=== PATIENT | female | born 1970 | race Caucasian/White ===

== ENCOUNTER 2018-09-04 10:04 | Outpatient (CLI) | payer OTHER, SELFPAY ==
[2018-09-04] VITALS (9 sets, daily range): BP systolic 117–144; BP diastolic 83–90; PULSE 93–110; RESP 16–20; TEMP 36.9; O2SAT 99–100
--- NOTE | 2018-09-04 10:08 | DI.RAD.S_ITS ---
PROCEDURE: PAIN L/SI FACET INJ/BLK 1STL INDICATIONS: SPONDYLOSIS FINDINGS: Fluoroscopic spot filming was performed to verify right-sided placement of spinal needles at the L4-5 and L5-S1 facet level(s), as labeled on the films. Appropriate location(s) of the needle tip(s) was confirmed by injection of iodinated contrast. IMPRESSION: Successful right-sided L4-5 and L5-S1 facet needle tip localization for steroid injection. Dictated by: Andrew Dave M.D. on 09/04/2018 at 12:45 Approved by: Andrew Dave M.D. on 09/04/2018 at 12:46
--- NOTE | 2018-09-04 10:08 | DI.RAD.S_ITS ---
PROCEDURE: XR LUMBAR SPINE MIN 4V INDICATIONS: lower back pain TECHNIQUE: 5 views of the lumbar spine were acquired. COMPARISON: None. FINDINGS: Bones: 5 nonrib-bearing vertebrae are present. There is normal bony alignment. No vertebral body compression fractures. No suspicious bony lesions. The moderate foraminal narrowing is present at L5-S1 with trace retrolisthesis at this level. Soft tissues: Overlying bowel gas pattern is normal. No suspicious soft tissue calcifications. Oblique images: No pars defects. IMPRESSION: Degenerative changes most notable at L5-S1. Dictated by: Maren Moreno M.D. on 09/04/2018 at 12:35 Approved by: Maren Moreno M.D. on 09/04/2018 at 12:38
[2018-09-04] MEDS: MIDAZOLAM 5 MG/5 ML VIAL IV (11:24)
[2018-09-04] MEDS: IOPAMIDOL 15 ML VIAL 3 ML INJ (11:30)
[2018-09-04] MEDS: BUPIVACAINE 0.5% (PF) VIAL 2 ML INJ (11:31)
[2018-09-04] MEDS: BETAMETHASONE 30 MG/5 ML MDV 12 MG INJ (11:32)
[2018-09-04] MEDS: LIDOCAINE 1% 20 ML INJ 10 ML INJ (11:32)
--- NOTE | 2018-09-04 11:35 | PC.NURSE ---
ASSISTING PT OFF TABLE AND TRANSPORTING TO POST PROC AREA IN STABLE CONDITION
--- NOTE | 2018-09-04 11:41 | P.PCN_ITS ---
Procedures Date/Time Date of procedure: 09/04/18 Time of procedure: 11:39 General Procedure description: PREOP DIAGNOSIS 1. FACET ARTHROPATHY 2. AXIAL LBP 3. MULTILEVEL DDD POST OP DIAGNOSIS 1. FACET ARTHROPATHY 2. AXIAL LBP 3. MULTILEVEL DDD PROCEDURES 1. FLUORSCOPICALLY GUIDED CONTRAST CONTROLLED FACET JOINT INJECTIONS BILATERAL L4/5, L5/S1 PHYSICIAN: Sean Yousif, DO INDICATIONS Sarahi is referred for treatment of Bilateral Axial LBP FINDINGS Multilevel Facet Arthropathy with Clinically significant axial LBP DESCRIPTION OF PROCEDURE Fluoroscopically guided, contrast-controlled bilateral L4/5, L5/S1 facet joint injections. Following denial of allergy and review of potential side effects and complications, including, but not necessarily limited to, infection, allergic reaction, local tissue breakdown, stroke, temporary or permanent nerve injury, paralysis, and possible , the patient indicated that the patient understood and agreed to proceed. An informed consent document was signed by the patient, witnessed by a nurse, and placed in the patient's chart. Additionally, other treatment options including medications, modalities, and physical therapy were reviewed with the patient. After review of previous anaesthesic history and IV conscious sedation the patient was deemed safe to proceed with todays procedure with IV conscious sedation as ASA class II designation. Safety time-out was performed to confirm patient ID, procedure to be performed and site of procedure. IV sedation was accomplished with a combination of 5mg was administered by the RN after DO order, titrated to patient comfort during the course of the procedure while the patient remained responsive to all verbal commands In the prone position, following sterile prep and drape of the lumbar region, the posterior aspect of the L4/5, L5/S1 facet joints were identified fluoroscopically. The skin was anesthetized via a 25-gauge 1.5-inch needle with 1% lidocaine solution into the corresponding facet joints. At this point, a 22- gauge 3.5-inch spinal needle was atraumatically introduced and advanced under fluoroscopic guidance into the corresponding facet joints. Following negative aspiration, injections of approximately 0.2-cc of Isovue 200 confirmed interarticular placement without vascular uptake. The identical procedure was then performed at the L4/5, L5/S1 facet joints on the left. Radiological data, including multiple fluoroscopic views of the lumbosacral spine, reveal a spinal needle at the L4/5, L5/S1 facet joints bilaterally. Subsequent views show flow of contrast material both superiorly and inferiorly within the joint space without vascular or intrathecal uptake. At this point, a total of 0.5 cc including a mixture of 0.25cc Marcaine and 0.25cc betamethasone was injected without complication into each of the corresponding facet joints. The patient tolerated the procedure well without signs or symptoms of complications prior to transfer to the recovery area continued monitoring withou t incident. The patient was then transferred to the recovery area where they were observed for an appropriate period of time after the injection. The patient reported a VAS score of 7 prior to the procedure and a post- procedure VAS of 0. Total Fluoroscopy Time: 20.3 seconds Total Conscious Sedation Time: 24min POST OP INSTRUCTIONS The patient was provided a Pain Log to continue to record their response to the target-specific procedure prior to follow-up visit with their referring physician. Additionally, specific post-injection care instructions and a contact number to our office were provided if concerns arise regarding possible complications associated with the procedure are suspected. Sean Yousif, Complications: none
--- NOTE | 2018-09-04 12:19 | PC.NURSE ---
pt returned awake and alert, able to move from wheelchair to chair with standby assist. Resumed monitoring from Trang FIELDS.
== END 2018-09-04 12:06 ==
LOC: RAD 10:07
PROVIDERS: Visit Provider Physical Medicine & Rehabilitation
DX: M47.817 Spondylosis without myelopathy or radiculopathy, lumbosacral region (principal); M47.816 Spondylosis without myelopathy or radiculopathy, lumbar region; M54.5 Low back pain; M51.36 Other intervertebral disc degeneration, lumbar region; M51.37 Other intervertebral disc degeneration, lumbosacral region
CPT/HCPCS: 64493; 64494; 72110; 99152; J0702; J2250

== ENCOUNTER 2018-10-30 07:34 | Outpatient (CLI) | payer OTHER, SELFPAY ==
[2018-10-30] VITALS (8 sets, daily range): BP systolic 99–128; BP diastolic 59–91; PULSE 89–100; RESP 16–18; TEMP 36.5; O2SAT 96–100
--- NOTE | 2018-10-30 07:36 | DI.RAD.S_ITS ---
PROCEDURE: PAIN L/S FACET INJ/BLK 1ST NIGEL COMPARISON: None. INDICATIONS: SPONDYLOSIS FINDINGS: 3 bilateral needles have been placed with needle tip localization directed for L4, L5, and S1 medial branch blocks. IMPRESSION: 6 total needle tip localization is appropriate for L4, L5 and S1 medial branch block procedures. Dictated by: Andrew Dave M.D. on 10/30/2018 at 11:16 Approved by: Andrew Dave M.D. on 10/30/2018 at 11:18
[2018-10-30] MEDS: fentaNYL 100 MCG/2 ML INJ 50 MCG IV (08:35)
[2018-10-30] MEDS: MIDAZOLAM 5 MG/5 ML VIAL IV (08:35)
[2018-10-30] MEDS: IOPAMIDOL 15 ML VIAL 3 ML INJ (08:42)
[2018-10-30] MEDS: BUPIVACAINE 0.5% (PF) VIAL 5 ML INJ (08:43)
[2018-10-30] MEDS: BETAMETHASONE 30 MG/5 ML MDV 12 MG INJ (08:43)
[2018-10-30] MEDS: LIDOCAINE 1% 20 ML INJ 10 ML INJ (08:43)
--- NOTE | 2018-10-30 08:46 | PC.NURSE ---
ASSISTING PT OFF TABLE AND TRANSPORTING TO POST PROC AREA IN STABLE CONDITION
--- NOTE | 2018-10-30 08:53 | P.PCN_ITS ---
Procedures Date/Time Date of procedure: 10/30/18 Time of procedure: 08:52 General Procedure description: Procedure description: 1. FACET ARTHROPATHY PROCEDURES: 1. BILATERAL- L4, L5 and S1 MB BLOCKS PHYSICIAN: Sean Yousif DO INDICATIONS Sarahi is referred for treatment of Bilateral Axial LBP. DESCRIPTION OF PROCEDURE Fluoroscopically guided, contrast-controlled bilateral L4, L5 and S1 medial branch blocks with 0.5cc of 0.5% Marcaine. Following denial of allergy and review of potential side effects and complications, including, but not necessarily limited to, infection, allergic reaction, local tissue breakdown, nerve injury, paralysis, stroke and possible , the patient indicated that the patient understood and agreed to proceed. An informed consent document was signed by the patient, witnessed by a nurse, and placed in the patient's chart. After review of previous anaesthesic history and IV conscious sedation the patient was deemed safe to proceed with todays procedure with IV conscious sedation as ASA class II designation. Safety time-out was performed to confirm patient ID, procedure to be performed and site of procedure. IV sedation was accomplished with a combination of 5mg of Versed and 50mcg of Fentanyl was administered by the RN after DO order, titrated to patient comfort during the course of the procedure while the patient remained responsive to all verbal commands In the prone position, following sterile prep and drape of the lumbar region, the right L4, L5 and S1 anatomical location of the medial branch of the dorsal ramus was identified fluoroscopically. Subsequently an anesthetic skin wheal using 1% lidocaine solution was initiated at each of the anatomical spots. Subsequently then a 22-gauge 3.5-inch spinal needle was atraumatically introduced and advanced under fluoroscopic guidance at each of the corresponding sites at the right L4, L5 and S1 MB. After negative aspiration, 0.2 cc of Isovue 200 was injected, confirming placement without vascular or intrathecal uptake. Subsequently then 0.5 cc of 0.5% Marcaine solution was injected at each of the corresponding sites at the right L4, L5 and S1 medial branch locations. The identical procedure was replicated on the left. The patient tolerated the procedure well without signs or symptoms of complications prior to transfer to the recovery area continued monitoring without incident. Post-procedure, the patient was monitored initiating provocative activities to measure the amount of relief from block of the facetogenic pain. The patient reported a VAS of 7 prior to the procedure and a post-procedure VAS of 1. It has been a pleasure to assist in the diagnostic and therapeutic care of your patient. Total Fluoroscopy Time: 24.8 seconds Total Conscious Sedation Time: 24min POST OP INSTRUCTIONS The patient was provided with a Pain Log to complete over the next several hours and subsequent days prior to the patient's follow up with the ordering physician. If the patient has design quality engineer relief to the solution applied, then they may be a candidate for medial branch rhizotomy. The patient is aware, was provided, once again, with a Pain Log and will follow up with the referring physician for review and clinical correlation Sean Yousif DO Complications: none
--- NOTE | 2018-10-30 08:58 | PC.NURSE ---
pt returned from post procedure awake and alert, able to get into chair from wheelchair with standby assist. Resumed monitoring from Trang FIELDS.
== END 2018-10-30 09:32 ==
LOC: RAD 07:35
PROVIDERS: Visit Provider Physical Medicine & Rehabilitation
DX: M47.816 Spondylosis without myelopathy or radiculopathy, lumbar region (principal); M47.817 Spondylosis without myelopathy or radiculopathy, lumbosacral region
CPT/HCPCS: 64493; 64494; 99152; J0702; J2250; J3010

== ENCOUNTER 2019-01-02 07:41 | Outpatient (CLI) | payer OTHER, SELFPAY ==
[2019-01-02] VITALS (12 sets, daily range): BP systolic 106–120; BP diastolic 63–79; PULSE 78–87; RESP 16; O2SAT 98–100
--- NOTE | 2019-01-02 07:42 | DI.RAD.S_ITS ---
PROCEDURE: PAIN L/S MED/LAT N RFA BILAT INDICATIONS: SPONDYLOSIS FINDINGS: Fluoroscopic spot filming was performed to verify placement of spinal needles at the L4, L5 and S1 level(s), as labeled on the films. Appropriate location(s) of the needle tip(s) was confirmed by injection of iodinated contrast. Dictated by: Roger Ryan M.D. on 01/03/2019 at 8:42 Approved by: Roger Ryan M.D. on 01/03/2019 at 8:43
[2019-01-02] MEDS: MIDAZOLAM 5 MG/5 ML VIAL IV (08:27)
[2019-01-02] MEDS: fentaNYL 100 MCG/2 ML INJ 50 MCG IV (08:27)
[2019-01-02] MEDS: BUPIVACAINE 0.5% (PF) VIAL 5 ML INJ (08:40)
[2019-01-02] MEDS: LIDOCAINE 1% 20 ML INJ 10 ML INJ (08:40)
[2019-01-02] MEDS: BETAMETHASONE 30 MG/5 ML MDV 12 MG INJ (08:41)
[2019-01-02] MEDS: MIDAZOLAM 2 MG/2 ML VIAL IV (09:00)
--- NOTE | 2019-01-02 09:14 | PC.NURSE ---
Pt tolerated procedure well. Able to get off the table with standby assist. Transferred pt via wheelchair to pre procedure room awake and alert for continued monitoring with Trang FIELDS.
--- NOTE | 2019-01-02 09:17 | PM.PROC.1 ---
Procedures Date/Time Date of procedure: 01/02/19 Time of procedure: 09:17 General Procedure description: PREOP DIAGNOSIS 1. RECALCITRANT FACET ARTHROPATHY, POST OP DIAGNOSIS 1. RECALCITRANT FACET ARTHROPATHY PROCEDURES 1. BILATERAL L4 AND L5 MEDIAL BRANCH RADIOFREQUENCY NEUROTOMY AND S1 DORSAL RAMUS BRANCH RADIOFREQUENCY NEUROTOMY, PHYSICIAN: Sean Yousif DO INDICATIONS: Sarahi is referred for treatment of facet arthropathy. DESCRIPTION OF PROCEDURE Right L4 and L5 medial branch radiofrequency neurotomy and right S1 dorsal ramus radiofrequency neurotomy under fluoroscopy with conscious sedation. The patient is well known to this clinic having undergone previous facet injections with good but temporary relief. The patient has experienced appropriate, concordant relief with previous facet and median branch blocks but the patient's pain has been recalcitrant to further conservative measures. Therefore, based upon the patient's relief and persistent symptoms, the patient is considered an appropriate candidate for facet rhizotomy. All of the patient's questions regarding the risks versus benefits of the procedure, including, but not limited to, bleeding, infection, temporary as well as lasting nerve injury, paralysis, stroke, and , as well treatment alternatives were answered to satisfaction. After obtaining informed consent, denial of pertinent drug allergies, as well as being made aware of the potential risks of bleeding, infection, spinal cord trauma, paralysis, temporary and permanent nerve damage, seizure, stroke, and possible , the patient was brought to the fluoroscopy suite and positioned prone on the fluoroscopy table. The lumbar region was prepped with Betadine and covered with a fenestrated drape in the usual sterile fashion. Appropriate monitors applied including pulse oximeter, pulse, and blood pressure for regular monitoring throughout the procedure. After review of previous anaesthesic history and IV conscious sedation the patient was deemed safe to proceed with todays procedure with IV conscious sedation as ASA class II designation. Safety time-out was performed to confirm patient ID, procedure to be performed and site of procedure. IV sedation was accomplished with a combination of 7mg of Versed and 50mcg of Fentanyl administered by the RN after DO order, titrated to patient comfort during the course of the procedure while the patient remained responsive to all verbal commands. After local infiltration using 1% lidocaine, under fluoroscopic guidance, a 10-cm RF insulated needle with a 10-mm active tip was positioned parallel to the junction of the right sacral ala and the superior articulating process where the S1 dorsal ramus resides. Needle placement was confirmed with sensory stimulation at 50 Hz, with motor stimulation of .5v on the right which produced local stimulation without radicular component. The stimulation was then increased to 1.5v with, once again, only local multifidus stimulation without radicular component. This was then followed by two discreet lesions performed at 80 degrees Celsius for 90 seconds each. The needle was then removed and the identical procedure was performed along the length of the right L5 medial branch with motor stimulation at .7v on the right. The identical procedure was once again performed along the length of the right L4 medial branch with motor stimulation of .5v on the right. The identical procedure was repeated on the left. The patient tolerated the procedure well without signs or symptoms of complications prior to transfer to the recovery area continued monitoring without incident. The patient was then transferred to the recovery area where they were observed for an appropriate period of time after the injection. The patient reported a VAS score of 9 prior to the procedure and a post-procedure VAS of 0. Total Fluoroscopy Time: 22.7 seconds Total Conscious Sedation Time: 34min POST OP INSTRUCTIONS The patient was provided a Pain Log to continue to record the patient's response to the target-specific procedure prior to the patient's follow-up visit with the referring physician. Additionally, specific post-injection care instructions and a contact number to our office were provided if concerns arise regarding possible complications associated with the procedure are suspected. Sean Yousif DO Complications: none
--- NOTE | 2019-01-02 09:24 | PC.NURSE ---
ACCEPTED CARE OF PT IN POST PROC AREA IN STABLE CONDITION
== END 2019-01-02 09:57 | disposition home or self-care (01) ==
LOC: RAD 07:42
PROVIDERS: Visit Provider Physical Medicine & Rehabilitation
DX: M47.816 Spondylosis without myelopathy or radiculopathy, lumbar region (principal); M47.817 Spondylosis without myelopathy or radiculopathy, lumbosacral region
CPT/HCPCS: 64635; 64636; 99152; 99153; J0702; J2250; J3010

== ENCOUNTER 2023-10-15 09:11 | Inpatient (IN) | payer OTHER, SELFPAY ==
[2023-10-08 09:46] VITALS: BMI 32.1
[2023-10-15] VITALS (15 sets, daily range): BP systolic 88–130; BP diastolic 55–83; PULSE 60–97; RESP 12–18; TEMP 36.1–36.7; O2SAT 93–100; BMI 32.1
--- NOTE | 2023-10-15 | DI.RAD.S_ITS ---
PROCEDURE: XR LUMBAR SPINE 2-3V INDICATIONS: L4-5 TLIF TECHNIQUE: 2 intraoperative fluoroscopic views of the lumbar spine were acquired. COMPARISON: [facility], , XR LUMBAR SPINE MIN 4V, 09/04/2018, 10:09. FINDINGS: Intraoperative fluoroscopic images shows posterior fusion at L4-5 level with surgical hardware and intervertebral spacer in place. IMPRESSION: Fluoro guidance was provided intraoperatively for L4-5 TLIF. Dictated by: Huang Mark M.D. on 10/15/2023 at 13:50 Approved by: Huang Mark M.D. on 10/15/2023 at 13:58
[2023-10-15] MEDS: LACTATED RINGERS 1,000 ML 42 ML IV ×2 (09:54→12:49)
[2023-10-15] MEDS: GABAPENTIN 600 MG TABLET PO (09:54)
[2023-10-15] MEDS: ACETAMINOPHEN 325 MG TABLET 975 MG PO (09:54)
[2023-10-15] MEDS: SCOPOLAMINE 1 PATCH TOP (10:21)
--- NOTE | 2023-10-15 10:27 | PM.PREOP ---
Pre-operative Note Interval Note History & Physical reviewed/Exam performed by Physician: Yes Changes to H&P: No
--- NOTE | 2023-10-15 11:09 | SUR.OPER ---
Prone on spine table, head in foam head support, padded chest and pelvic supports, gel pad at knees, lower legs supported by pillows; nipples, genitalia and toes free of pressure, arms secured on foam padded arm boards at <90 degrees abduction. Tape over blanket at thigh secured to table.
[2023-10-15] MEDS: CEFAZOLIN 2 GM/100 ML PREMIX 100 ML IV ×2 (11:15→18:52)
[2023-10-15] MEDS: BUPIVACAINE LIPOSOME 266 MG/20 ML VIAL INJ (11:29)
[2023-10-15] MEDS: BUPIVACAINE 0.25% (PF) 60 ML, EPINEPHrine 0.15 MG INJ (11:30)
--- NOTE | 2023-10-15 13:32 | P.OP_ITS ---
Operative Date/Time/Diagnoses Date of procedure: 10/15/23 Time of procedure: 10:30 Pre-op diagnosis: 1. L4-5 spondylolisthesis 2. L4-5 spinal stenosis with radiculopathy Post-op diagnosis: same Procedure & Clinicians Procedure: 1. L4-5 Postero-lateral and posterior interbody fusion 2. L4-5 interbody cage placement. 3. L4-5 decompressive laminectomy with bilateral facetecomies 4. L4-5 Posterior non-segmental instrumentation 5. Hydro of bone marrow from iliac crest 6. Utilization of microsurgical technique and operating microscope Same procedure as scheduled: No Indications: Patient has been having chronic back pain and worsening lumbar radiculopathy. Patient failed multiple conservative management with worsening pain weakness and numbness in her lower extremity. Patient has been having difficulty performing activity of daily living. After discussing risks benefits of treatment options, patient elected proceed with surgery. Surgeon: Nuno Cox Wreath Maker: Humera Lopez Click Yes if Unassisted: No Anesthesia Type: General Operative Notes Closure Type: primary Specimen(s): none sent Prosthetic devices, grafts, tissues, transplants, or devices: Globus revolve screws, Rise cage Estimated Blood Loss (mL): 100 Blood products transfused: none Procedure in detail: Patient was seen in the preoperative area. Risks and benefits of the surgery was discussed with the patient. Informed consent was obtained from the patient and placed in the chart. Surgical site was marked. Patient was taken to the operative room. General anesthesia was administered. Prophylactic antibiotic was given to the patient less than 30 min before the incision was made. Patient was placed into a prone position on the Lm table. Patient's back was then prepped and draped in the sterile fashion. Time-out was performed at this time. Using AP and lateral C-arm imaging the interval between L4-5 was identified and marked on patient's back. A 2 inch incision 2 in from midline was made on the left side first. The fascia was incised in line with skin incision. Globus MARS retractors was placed inside the incision and docked onto the L4 lamina. Using microsurgical technique and operating microscope, a L4 laminectomy and L4-5 facetectomy was performed using a Kerrison rongeur. The laminectomy and facetectomy was performed in order to decompress patient's cauda equina as well as the nerve roots exiting at the L4-5 level. The disc space at L4-5 was identified. And a total diskectomy was performed at L4-5 level. The endplates were decorticated using a rasp and shaver. The total diskectomy and decortication was performed at L4-5 level in order to to accomplish a L4-5 fusion. The local bone from the laminectomy and facetectomy was saved for local bone grafting. After the total diskectomy and decortication was completed, DBM bone graft material was combined with local bone that was harvested earlier. At this time, a separate skin is incision was made over the iliac crest. A Jamshidi needle was inserted into the iliac crest through a separate skin incision. 5 cc of bone marrow aspiration was obtained through the separate skin incision using a Jamshidi needle from the iliac crest. The bone marrow aspiration was combined with local bone and the DBM bone grafting material. The bone grafting material was placed into the L4-5 interbody space along with a expandable cage. The cage was expanded to its maximum height using the torque limiting screwdriver. At this time a mirror image incision was made on the right side. The fascia was incised in line with the skin incision. Globus MARS retractor was inserted and d ocked onto the L4-5 posterolateral gutter. Using the power drill, posterior- lateral decortication was performed at L4-5 level until bleeding cortical bone was identified. The remaining bone grafting material was placed into the L4-5 posterior lateral gutter he order to accomplish posterolateral fusion at the L4- 5 level. Using the double C-arm technique, pedicle screws were placed into the L4-5 pe dicles bilaterally. This was done by placing the Jamshidi needle into the pedicles, then placing the guidewires over the Jamshidi needle, and finally placing the cannulated screws over the guidewires bilaterally. After the pedicle screws were placed, 2 titanium rods was locked into the heads of the pedicle screws using locking caps and torque limiting screwdriver. After all the hardware was placed, and confirmed with AP and lateral C-arm imaging, the wound was then irrigated with sterile normal saline and packed with Ray-Danni gauze for 3 min to accomplish hemostasis. After the gauze was removed the deep fascia was closed with #1 Vicryl suture. The subcutaneous layer was closed with 2-0 Vicryl. The skin was closed with skin roldan. Patient tolerated the procedure well. There were no complications. The Operation could not have been safely performed without compromising the technical result or length of the procedure, without the assistance of a skilled surgical training specialist. The surgical training specialist was medically necessary for proper positioning, retraction and manipulation of instruments, proper exposure, surgical preparation, and manipulation of tissue. Neuro monitoring was utilized throughout the entire case. Patient's signal was stable throughout entire procedure without any complications. Complications: none Post-operative Condition: stable Disposition: PACU Plan for aftercare: Admit to inpatient hospital
[2023-10-15] MEDS: HYDROMORPHONE 1 MG INJ IV ×2 (13:53→14:01)
[2023-10-15] MEDS: HYDROMORPHONE 2 MG TABLET PO (13:56)
[2023-10-15] MEDS: hydrOXYzine 50 MG/ML INJ 25 MG IM (14:04)
[2023-10-15] MEDS: IBUPROFEN 400 MG TABLET PO (15:54)
[2023-10-15] MEDS: HYDROMORPHONE 0.5 MG INJ IV ×2 (15:55→20:19)
--- NOTE | 2023-10-15 17:53 | PC.NURSE ---
Patient given 0.5mg of iv dilaudid for discomfort to back of 03/25. This has been helpful to patient. Dressing to lower back is cdi with gauze and metapore tape intact. She does not have a garcía catheter and knows to let us know when she has to use the bathroom. IVF infusing and patient is resting comfortably.
[2023-10-15] MEDS: LACTATED RINGERS 1,000 ML 125 ML IV (18:51)
[2023-10-15] MEDS: SENNOSIDES 8.6 MG TABLET 17.2 MG PO (20:19)
[2023-10-15] MEDS: DOCUSATE 100 MG CAPSULE PO (20:19)
[2023-10-15] MEDS: FLUoxetine 20 MG CAPSULE 40 MG PO (20:19)
[2023-10-15] MEDS: clonazePAM 0.5 MG TABLET PO (20:28)
[2023-10-15] MEDS: ONDANSETRON 4 MG/2 ML INJ IV (23:57)
[2023-10-15] MEDS: OXYCODONE IR 10 MG TABLET PO (23:57)
[2023-10-16] MEDS: CEFAZOLIN 2 GM/100 ML PREMIX 100 ML IV (03:03)
[2023-10-16] MEDS: OXYCODONE IR 10 MG TABLET PO ×6 (03:30→21:08)
[2023-10-16] MEDS: ACETAMINOPHEN 325 MG TABLET 650 MG PO ×4 (06:14→22:36)
[2023-10-16 06:20] VITALS: BP 100/64; PULSE 65; RESP 19; TEMP 36.6; O2SAT 94
--- NOTE | 2023-10-16 07:27 | PM.PNPO.1 ---
Subjective Subjective Date Patient Seen: 10/16/23 Time Patient Seen: 07:15 Interval history: Sarahi states she has back pain up and down her spine. At times the pain radiates into the middle of her left thigh. Pain is difficult to control with a combination of alternating between oxycodone and Dilaudid. She denies any worsening of numbness or tingling down either lower extermties. Denies any nausea, vomiting, fever or chills. She is able to ambulate short distances and urinate. Exam Vital Signs (past 8 hours): - 10/16/23 06:20 Temperature 97.8 F Pulse Rate 65 Respiratory Rate 19 Blood Pressure 100/64 Pulse Oximetry 94 Oxygen Flow Rate 0 Oxygen Delivery Method Room Air Oxygen Flow Rate 0 Narrative Exam Narrative: Patient found lying in bed. She appears to be uncomfortable. She has difficultly rolling to her side to inspect the dressing. Dressing in clean and well maintained. Sensation grossly intact throughout the lower extremities bilaterally. No pain to compression bilaterally to the thighs or calves. Able to dorsiflex and plantarflex against resistance at the ankles bilaterally. EHL able to flex and extend bilterally against resistance. No edema noted of lower extremities. [facility] Medical History (Updated 10/08/23 @ 10:20 by Janessa Zapata RN) PTSD (post-traumatic stress disorder) Depression Easy bruisability Neuroforaminal stenosis of lumbar spine Pre-diabetes Edema History of COVID-19 (02/2022) RLS (restless legs syndrome) Sciatica Surgical History (Updated 10/08/23 @ 10:20 by Janessa Zapata RN) Hx of tonsillectomy History of gynecologic surgery History of Social History household members: spouse and children Smoking Status: Former smoker alcohol intake: never Assessment & Plan Post-op Postoperative Procedures: Procedures Operation Date: 10/15/23 10:15 Actual Procedure Side Surgeon p L4-5 TLIF Nuno Cox MD Postoperative day: 1 Postoperative status narrative: Patient is having difficulty with pain control. We will try a course of muscle relaxers to assist in the back pain to provide relief so she may work with PT/OT so that she may be able to discharge home. Postoperative plan narrative: Ordered methocarbamol 50mg qid, prn for back pain and spasm. Multi-modal pain control to transition away from the hydromorphone to utlizing oxycodne, ibuprofen and acetaminophen for pain relief. Work with PT/OT today. Reevaluate for discharge to home tomorrow. Time Spent With Patient Time with patient: less than 15 minutes Quality VTE Deep Vein Thrombosis/Pulmonary Embolism Present on Admission: No
[2023-10-16] MEDS: methocarbamoL 500 MG TABLET PO ×3 (07:59→21:11)
[2023-10-16 08:00] VITALS: BP 107/55; PULSE 85; RESP 16; TEMP 36.8; O2SAT 93
[2023-10-16] MEDS: DOCUSATE 100 MG CAPSULE PO ×2 (08:00→20:15)
--- NOTE | 2023-10-16 09:40 | PT.IIE ---
Current Diagnoses Spondylolisthesis, lumbar region (10/15/23) Spinal stenosis, lumbar region without neurogenic claudication (10/15/23) Surgery Performed Operation Date: 10/15/23 10:15 Actual Procedures p L4-5 TLIF - Nuno Cox MD Surgical History (Last Updated 10/08/23 @ 10:20 by Janessa Zapata, RN) History of History of gynecologic surgery Hx of tonsillectomy Medical History (Last Updated 10/08/23 @ 10:20 by Janessa Zapata RN) Depression Easy bruisability Edema History of COVID-19 (02/2022) Neuroforaminal stenosis of lumbar spine Pre-diabetes PTSD (post-traumatic stress disorder) RLS (restless legs syndrome) Sciatica Physical Therapy Inpatient Evaluation/Re-Eval M1 PT/OT-IP Prior Functional Status Start: 10/16/23 11:33 Freq: NEEDED Status: Active Protocol: Document 10/16/23 09:40 AB (Rec: 10/16/23 11:51 AB [id number]) Medical Review Prior Functional Status Medical History Reviewed Yes Communication able to make needs known Mobility and Gait pt stated that she was independent with all mobilities and ambulation without AD Activities of Daily Living and IADL's per OT note: Pt states able to do all ADl and IADLl needs but has pain and spasms. Social History Household Members spouse Living Arrangements House Number of Floors (Floors) One Floor Number of Stairs To Enter/Railing? 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 M2 PT-IP Current Condition Start: 10/16/23 11:33 Freq: NEEDED Status: Active Protocol: Document 10/16/23 09:40 AB (Rec: 10/16/23 11:51 AB [id number]) Physical Therapy Current Condition Current Condition Evaluation Date 10/16/23 Treatment Diagnosis s/p L4-5 TLIF; difficulty in walking Onset Date 10/15/23 M3 PT-IP Subjective Start: 10/16/23 11:33 Freq: NEEDED Status: Active Protocol: Document 10/16/23 09:40 AB (Rec: 10/16/23 11:51 AB [id number]) Subjective Physical Therapy Visit Type Type Initial Evaluation Visit Start Time 09:40 Visit Stop Time 10:20 Number of STAFF PSYCHIATRIST Visits 0 Physical Therapy Visit Comments Patient Comments agreeable to do PT Therapy Pain Assessment Pain When Pain Assessed At Rest Pain Present Pain Present Pain Reported Location low back Intensity 7 Scale Used Numeric (0 - 10) Pain Management Techniques Apply Cold,Distraction, Modification of Treatment,Re- positioning,Timing of Activity with Medications M4 PT-IP Mobility and Gait Start: 10/16/23 11:33 Freq: NEEDED Status: Active Protocol: Document 10/16/23 09:40 AB (Rec: 10/16/23 11:51 AB [id number]) PT-Bed Mobility Assessment Rolling Type of Rolling Log Rolling Level of Assist Minimal Assistance Supine to Sit Supine to Sit Minimal Assistance,Bedrails Sit to Supine Sit to Supine Moderate Assistance,Bedrails PT-Transfer Assessment Sit to and From Stand Sit to and from Stand Minimal Assistance,1 Person Assistance,Use of Upper Extremities Equipment Transfer Assistive Device Gait Belt,Front Wheeled Walker Orthotic/Prosthetic Devices or Brace: No Transfers Transfer Destination Bed,Chair Transfer Technique ambulated Transfer Ability Level of Assist Minimal Assistance,1 Person Assistance,Use of Upper Extremities Comments Mobility Comments pt supine in bed and agreeable to do PT. spouse in room. obtained PLOF and home set up from pt and spouse. post-op folder provided and reviewed contents. educated pt and spouse regarding back precautions and log roll bed mobility. BP in supine; 113/66 O2 sat 98%. pt completed log roll supine to sit min A and max cues for techniques. able to sit on EOB SBA. BP : 128/73. no c/o dizziness/ lightheadedness. completed sit to stand from EOB min A and max cues for techniques. pt ambulated to the chair using FWW ~15 ft min A and cues. presents with unsteady shuffling gait with ( +) LLE ER and crossing midline decreasing TAIWO. pt sat on the chair. BP checked: 124/69 . caregiver training conducted. educated spouse on how to use safety belt and how to assist pt. spouse was able to put safety belt on pt. pt completed sit to stand from chair with heavy UE use on armrest and usnteady transition from sitting to standing. instructed pt to sit back on chair again. educated on sit<>stand techniques and how to increase forward trunk shift without bending back. pt repeated sit<>stand x 3 reps min A and cues. spouse assisted pt with ambulation to the bed using FWW min A. pt completed log roll sit to supine with spouse assisting pt with LE elevation to bed. pt completed supine to sit again with spouse assisting min A. pt ambulated to chair without spouse asssiting using FWW min A. positioned pt on the chair. call light and table placed within reach. ice pack provided. left pt with OT and spouse. Gait Assessment Gait Gait Assistance Required: Minimum Assistance,1 Person Assist Distance (Feet) 20 Able to Maintain Weight Bearing Status Yes During Gait Assistive Devices Assistive Device Gait Belt,Front Wheeled Walker Orthotic/Prosthetic Devices or Brace: No Gait Deviations General Gait Pattern Decreased Stride Length, Decreased Feet Clearance, Narrow Based Gait,Step-to Gait Factors Limiting Gait Function Factors Limiting Gait Function Decreased Activity Tolerance, Decreased Sensation,Decreased Strength,Difficulty Following Directions,Limited Range of Motion,Pain,Poor Balance,Poor Safety Awareness PT-Balance Assessment Sitting Balance and Reactions Static Sitting Balance Ability Good Dynamic Sitting Balance Ability Good Standing Balance and Reactions Static Standing Balance Ability Fair Dynamic Standing Balance Ability Fair Device Used FWW M5 PT-IP Objective Assessments Start: 10/16/23 11:33 Freq: NEEDED Status: Active Protocol: Document 10/16/23 09:40 AB (Rec: 10/16/23 11:51 AB [id number]) Orientation Orientation/Cognition Level of Alertness Alert Orientation Name,Place,Situation Language Function Ability No Deficits Noted Safety Awareness Understands Safety Issues Memory Description Short Term Impaired Gross Range of Motion Lower Extremity ROM Assessment Within Functional Limits Strength Lower Extremity Strength Assessment Left Impaired Hip 3+/5 Knee 3+/5 Sensation Assessment Sensation Gross Sensation Right LE Impaired,Left LE Impaired Sensation Description Tingling Comments Sensation Comments c/o B LE tingling Muscle Tone Muscle Tone WNL Yes M6 PT-IP Treatment Start: 10/16/23 11:33 Freq: NEEDED Status: Active Protocol: Document 10/16/23 09:40 AB (Rec: 10/16/23 11:51 AB [id number]) Physical Therapy Treatment Education Education Provided Precautions,Weight Bearing Status,Post-Op Packet,Safety M7 PT-IP Assessment and Plan Start: 10/16/23 11:33 Freq: NEEDED Status: Active Protocol: Document 10/16/23 09:40 AB (Rec: 10/16/23 11:51 AB [id number]) PT Summary Assessment and Plan Potential Rehabilitation Potential Fair Status of Condition at Evaluation Evolving Summary Impairments Pain,ROM,Strength,Balance, Coordination,Sensation,Tone, Cognition,Bed Mobility, Transfers,Gait,Activity Tolerance Assessment Summary pt is a 53 y/o F s/o L4-5 TLIF POD 1. pt has back precautions. pt plans to go home and spouse to assist her at home. initiated caregiver training but further training is needed. will continue to assess progress. pt with c/o increase LBP affecting activity tolerance and functional assistance limiting mobility at this time. Goals Bed Mobility Goal Independent Transfer Goal Independent,Front Wheeled Walker Gait Goal Independent,Front Wheel Walker Gait Distance 200 Other Goals improve transfers and ambulation using 4WW/LRAD ~ 250 ft mod I up/down 1 step with 1 rail SBA Days to Meet Goals 5 Frequency of Treatment Frequency Of Treatment Twice a Day Treatment Plan Physical Therapy Treatment Plan Bed Mobility Training,Transfer Training,Gait Training, Therapeutic Exercise,Balance Retraining,Post Op Education, Discharge Planning,Hot or Cold Pack,Neuromuscular Re-ed, Coordination Retraining,Manual Therapy Other Recommendations and Next Treatment cargiver training; ambulation Focus using 4WW when appropriate; up /down step stool with 1 rail Precautions Lumbar Precautions Log Roll,No Twisting,Limit Bending,Lifting Restriction of 10 lbs,Gait Belt above Incisional Area Recommendations To Nursing Amount of Assist Needed 1 Person Assist Discharge Recommendations PT Discharge Recommendations Home with 05/02 Assist Available,Home Health Equipment Needed for Home Before FWW if not safe with 4WW Discharge Transportation Needs at Discharge Private Vehicle
--- NOTE | 2023-10-16 10:30 | OT.IP.EVAL ---
Current Diagnoses Spondylolisthesis, lumbar region (10/15/23) Spinal stenosis, lumbar region without neurogenic claudication (10/15/23) Surgery Performed Operation Date: 10/15/23 10:15 Actual Procedures p L4-5 TLIF - Nuno Cox MD Past Medical History (Last Updated 10/08/23 @ 10:20 by Janessa Zapata, RN) Depression Easy bruisability Edema History of COVID-19 (02/2022) Neuroforaminal stenosis of lumbar spine Pre-diabetes PTSD (post-traumatic stress disorder) RLS (restless legs syndrome) Sciatica Surgical History (Last Updated 10/08/23 @ 10:20 by Janessa Zpaata, RN) History of History of gynecologic surgery Hx of tonsillectomy Occupational Therapy Inpatient Evaluation/Re-Eval M1 PT/OT-IP Prior Functional Status Start: 10/16/23 10:37 Freq: NEEDED Status: Active Protocol: Document 10/16/23 10:37 [facility] (Rec: 10/16/23 10:49 [facility] [id number]) Medical Review Prior Functional Status Communication independent Mobility and Gait Pt did not use a device to walk with. Activities of Daily Living and IADL's Pt states able to do all ADl and IADLl needs but has pain and spasms. Prior Functional Level (Other details) Pt's to be off of work until pt able to care for herself. Pt's son live in the back and uses a wc to get around. Social History Household Members spouse,children Living Arrangements House Number of Floors (Floors) One Floor Number of Stairs To Enter/Railing? ramp to enter Home Environment Standard Height Toilet,Tub/ Shower Home Equipment Front Wheel Walker,Raised Toilet Seat w/Armrests,Hand Held Shower,Educational Specialist,Bed Rails Additional Social History Comment Pt'e to install the bed rail and 4ww at home yet. M2 OT-IP Current Condition Start: 10/16/23 10:37 Freq: Status: Active Protocol: Document 10/16/23 10:37 [facility] (Rec: 10/16/23 10:49 [facility] [id number]) Occupational Therapy Current Condition Current Condition Evaluation Date 10/16/23 Treatment Diagnosis S/P L4-5 TLIF Diagnosis Onset Date 10/15/23 Post Operative Precautions Lumbar Precautions Log Roll,No Twisting,Limit Bending,Lifting Restriction of 10 lbs,Gait Belt above Incisional Area M3 OT- IP Subjective and Pain Start: 10/16/23 10:37 Freq: Status: Active Protocol: Document 10/16/23 10:37 [facility] (Rec: 10/16/23 10:49 [facility] [id number]) OT- Subjective Occupational Therapy Visit Type Type Initial Evaluation Visit Start Time 09:35 Visit Stop Time 10:30 Occupational Therapy Visit Comments Patient Comments Pt agreed to work with OT and pt's present for caregiver training and PT present initially as well. Patient/Caregiver Goals TO go home. OT Pain Assessment Pain When Pain Assessed During Mobility Pain Present Pain Present Pain Reported Location low back Intensity 8 Scale Used Numeric (0 - 10) M4 OT- IP ADL's Start: 10/16/23 10:37 Freq: Status: Active Protocol: Document 10/16/23 10:37 [facility] (Rec: 10/16/23 10:49 [facility] [id number]) OT LDO-[id number]-[id number] General Evaluation Self-Feeding Ability Independent OT ADL-Grooming General Evaluation Grooming Ability Standby Assistance Areas Needing Assistance Retrieving/Set-up of Grooming Items Comments OT Grooming Comments While standing with FWW. OT ADL-Oral Care General Eval Oral Care Ability Standby Assistance Comments Oral Care Comments VC to hinge at her hips or spit into a cup to best follow her back precautions. OT ADL-Dressing General Eval Lower Body Dressing Ability Maximum Assistance Areas Needing Assistance Socks Comments OT Dressing Comments Able to practice use of co founder and ceo and sock aid for underwear and socks. Educated to dress her weaker side first and take out last. OT ADL-Toileting Comments OT Toileting Comments Pt states used the toilet earlier. Suggested bets to use wipes and stand to do hygiene needs. Suggested to wear pads at night if needed. OT ADL-Bathing Comments OT Bathing Comments Pt will benefit from a shower chair in the claw foot tub. Pt has to use a step with handle to help get into the claw foot tub at home. M5 OT- IP IADL's Start: 10/16/23 10:37 Freq: Status: Active Protocol: Document 10/16/23 10:37 [facility] (Rec: 10/16/23 10:49 [facility] [id number]) OT-Instrumental Activities of Daily Living Deficits IADL Deficits Identified Deficits Home Safety Awareness Awareness of Need for Assistance at Home Good Awareness Ability to Problem Solve Emergency Able to Problem Solve Situations Meal Preparation Meal Preparation Caregiver Provides Assist Physician Industrial Physician Industrial Caregiver Provides Assist M6 OT- IP Functional Cognition Start: 10/16/23 10:37 Freq: Status: Active Protocol: Document 10/16/23 10:37 [facility] (Rec: 10/16/23 10:49 [facility] [id number]) Cognitive Factors Limiting Selfcare Function Cognitive Ability Level of Alertness Alert Patient Orientation Name,Age,Birthday,Month,Date, Year,Day of Week,Place, Situation Attention Span Ability Capable of Focused Attention, Capable of Sustained Attention Ability to Follow Commands Able to Follow One Step Commands Safety Awareness Decreased Ability to Apply Precautions Cognitive Comments Cognitive Assessment Comments Pt needing occasional reminders for her back precautions and for transition safety of hand and leg placement especially when coming to stand. OT- Vision and Hearing OT- Hearing Assessment OT- Hearing Assessment WFL OT- Vision Assessment Visual Acuity Glasses All The Time,Contact Lenses Visual Attentiveness WFL Occular Pursuits WFL M7 OT- IP Mobility and Balance Start: 10/16/23 10:37 Freq: Status: Active Protocol: Document 10/16/23 10:37 [facility] (Rec: 10/16/23 10:49 [facility] [id number]) OT- Bed Mobility Assessment Supine to Sit Supine to Sit Assist Minimal Assistance Sit to Supine Sit to Supine Assist Minimal Assistance Scooting Scooting to Edge of Bed Standby Assistance OT-Transfer Assessment Sit to and From Stand Sit to and from Stand Contact Guard Assistance Transfers Transfer Ability Contact Guard Assistance, Minimal Assistance Technique Transfer Destination Bed,Chair Transfer Technique Stand Step Pivot Devices Transfer Assistive Devices Gait Belt,Front Wheeled Walker Comments Mobility Comments JERRY to assist with her legs into and out of the bed. Able to go over techniques wqith her to be able to assist for all mobility needs. OT- Balance Assessment Sitting Balance and Reactions Static Sitting Balance Ability Good Dynamic Sitting Balance Ability Good Standing Balance and Reactions Static Standing Balance Ability Fair Dynamic Standing Balance Ability Fair M8 OT- IP Objective Assessments Start: 10/16/23 10:37 Freq: Status: Active Protocol: Document 10/16/23 10:37 [facility] (Rec: 10/16/23 10:49 [facility] [id number]) OT Gross Range of Motion Upper Extremity Range of Motion Assessment Within Functional Limits OT Strength Upper Extremity Strength Assessment Within Functional Limits M9 OT- IP Assessment and Plan Start: 10/16/23 10:37 Freq: Status: Active Protocol: Document 10/16/23 10:37 [facility] (Rec: 10/16/23 10:49 [facility] [id number]) OT Summary Assessment and Plan Potential Rehabilitation Potential Good Analytic Complexity at Evaluation Low Summary OT Impairments Pain,Strength,Balance, Functional Mobility,Dressing, Toileting,Bathing,Toilet Transfers,Shower Transfers, Activity Tolerance Progress Towards Goals Progressing Toward Goals Assessment Summary Pt low complexity and main barriers are pain, decreased balance, activity tolerance, and now will need her to assist for ADL and mobility needs. OT has initiated caregiver training with pt's . Pt to go home with her to assist when medically stable. Goals Dressing Goal Independent,Educational Specialist,Sock Aid Toileting Goal Independent Bathing Goal Standby Assistance Toilet Transfer Goal Independent Shower Transfer Goal Contact Guard Assistance Days to Meet Goals 7 Frequency of Treatment Frequency Of Treatment Once a Day Treatment Plan OT Treatment Plan ADL Training,Functional Mobility,Patient/Family Education,Discharge Planning Discharge Recommendations OT Discharge Recommendations Home with 05/02 Assist Available Home Equipment Needs shower chair, FWW, LB dressing equipment, long handled brush Transportation Needs at Discharge Private Vehicle
--- NOTE | 2023-10-16 11:37 | CM.DANOTE ---
DCP Note Pt is a 53yo F here following planned TLIF with Dr. Cox on 10.17.23. PCP Jami Olson [facility] and self pay HAND SHOE CUTTER reviewed EMR. Per PT, rec home with assistance. Per RN notes, pt in a lot of pain post op. HAND SHOE CUTTER met with pt and spouse Erich at bedside. Pt, spouse, and adult son live together in [facility]. Spouse is going to be home for a few days to support pt at home. Son is also support, is w/c bound and helps with everything but physical mobility. Pt reports being in a lot of pain- pt and spouse wants to stay another night due to pain. Pt and spouse reports they have all the equip they need at home. Deny other CM needs. Plan: anticipate home with spouse/son support either today vs tomorrow. Deny other CM needs. CM team will follow as needed. CHLOE Renae Discharge Planning/Care Management CM Discharge Assessment Start: 10/16/23 11:35 Freq: Status: Active Protocol: Document 10/16/23 11:35 SL (Rec: 10/16/23 11:37 [id number]) Discharge Planning Assessment Assigned Mill Set Up CHLOE Holt DPOA/Assigned Designee Name Erich spouse Contact Information [phone] Advance Directives? No History Provided By Patient Prior Living Arrangements House Household Members spouse,children Comment adult son lives with them. He is w/c bound but able to offer assistance to pt besides physically Type of transporation used prior to Drives own vehicle admit Independent with ADL's Yes Is patient alert and oriented? Yes DME Already Rented / Owned Bath Bench,FWW / Walker,Other Comment pt reports significant amounts of pain. preference is one more night Discharge Plan Home Transportation Arrangement spouse in POV Referrals Initiated None needed Whiteboard Updated in Patient Room with Yes name and ext. # of Mill Set Up Review Status In Process Next Review Type Continued Stay Review Pre-Anesthesia Assessment Start: 10/08/23 09:46 Freq: Status: Complete Protocol: Document 10/08/23 09:46 CAB (Rec: 10/08/23 10:38 CAB [id number]) Pre-Anesthesia Assessment Patient Information Reviewed Via Phone Assessment Assessment Completed With Patient Diagnostic Results BMP/CMP,CBC Comment Outside labs scanned Primary Care Provider Jami Olson Seen Specialist in Last 12 Months Yes Specialist Seen Orthopedist Primary Language Kinyarwanda [employer] Sales Supervisor Required No Height 162.56 cm Weight 84.822 kg Body Mass Index (BMI) 32.1 Hearing Ability Normal Visual Assist Contacts,Glasses Dentition Type Teeth, Natural Present Barriers to Learning None Hx Anesthesia Reactions No Hx Family Anesthesia Reaction No Hx Malignant Hyperthermia No Hx Blood Transfusions No Anesthesia Review Requested No Chart Reader No alcohol intake former Smoking Status Former smoker how long ago did patient quit smoking Quit 25 years ago Substance Use Type does not use Pain Present Pain Reported Musculoskeletal Symptoms Abnormal Gait,Back Pain, Difficulty Walking,Radiating Pain into Limb History of Falling (Recent or History of Yes ) Patient is completely paralyzed or No completely immobile Mental Status Oriented to own ability Is patient on oxygen? No Does patient have PABON/SOB Yes: Pt feels r/t Covid 2022 Hx Sleep Apnea No Currently Taking a Beta [place] No Hx Chest Pain No Hx SOB Yes: Pt feels r/t Covid 2022 Hx Syncope or Dizziness Yes: Dizziness-intermittent, pt feels r/t Covid 06/2023 Anti-Coagulant Therapy No Has a Air Brush Operator No Cardiac Testing No Hx Pacemaker/ICD No Pacemaker Rep Required? No Cardiac Clearance Received Not Applicable Diet Type At Home Regular Dysphagia No Gastrointestinal Symptoms Constipation Chronic UTI No Urinary Catheter Present No Hx Urinary Self Catheterization No Diabetes No Patient No Lactating No Hx Drug Resistant Organism No Presence of External or Internal Medical No Devices Received a COVID vaccine? Yes Received all doses? Yes Marital Status Lives With spouse,children Current Living Arrangements House Number of Floors (Floors) One Floor Support System Spouse Does the Patient Have Assistance After Yes Surgery Patient Discharge Plan Description Return Home Comment Pt advised 1-3 day length of stay per surgeon Feels Safe in Current Environment Yes Been Physically Hurt or Threatened By a No Person in Current Environment Do you have thoughts of harming yourself None or others? Are you currently considering suicide? No Do you have a plan to hurt yourself or No Plan others? Do You Have Any Spiritual Beliefs That No May Affect Your HC Choices? Do You Have Any Cultural Practices That No May Affect Your HC Choices? Comment Mandaen Who Can We Speak to About Patient's Care Family, friends Identifying Code for Release of Patient Declines to issue Information Health Care Proxy/Next of Kin Rosa (Mom) Health Care Proxy Emergency Contact Name Erich () Emergency Contact Advance Directives? No Power of Mine Administrator Supervisor No PAC Instructions Durable medical equipment, Medications to take/avoid, Nasal antibiotic,No ETOH/ petroleum product on skin DOS, NPO,Pre-surgical wash,Sensory aids,Sturdy shoes/comfortable clothes,Do not bring valuables and remove jewelry
--- NOTE | 2023-10-16 14:14 | PT.IPTN ---
Current Diagnoses Spondylolisthesis, lumbar region (10/15/23) Spinal stenosis, lumbar region without neurogenic claudication (10/15/23) Surgery Performed Operation Date: 10/15/23 10:15 Actual Procedures p L4-5 TLIF - Nuno Cox MD Physical Therapy Treatment Note M2 PT-IP Current Condition Start: 10/16/23 11:33 Freq: NEEDED Status: Active Protocol: Document 10/16/23 09:40 AB (Rec: 10/16/23 11:51 AB [id number]) Physical Therapy Current Condition Current Condition Evaluation Date 10/16/23 Treatment Diagnosis s/p L4-5 TLIF; difficulty in walking Onset Date 10/15/23 M3 PT-IP Subjective Start: 10/16/23 11:33 Freq: NEEDED Status: Active Protocol: Document 10/16/23 14:31 TS (Rec: 10/16/23 14:48 TS [id number]) Subjective Physical Therapy Visit Type Type Treatment Note Visit Start Time 14:14 Visit Stop Time 14:32 Notes Spouse present Number of COIN ROLLING MACHINE OPERATOR Visits 1 Physical Therapy Visit Comments Patient Comments Pt found resting in bed, reports pain is 6/10, is agreeable to PT. Therapy Pain Assessment Pain When Pain Assessed At Rest Pain Present Pain Present Pain Reported Location low back Intensity 6 Scale Used Numeric (0 - 10) Pain Management Techniques Apply Cold,Distraction, Modification of Treatment,Re- positioning,Timing of Activity with Medications M4 PT-IP Mobility and Gait Start: 10/16/23 11:33 Freq: NEEDED Status: Active Protocol: Document 10/16/23 14:31 TS (Rec: 10/16/23 14:48 TS [id number]) PT-Bed Mobility Assessment Rolling Type of Rolling Log Rolling Level of Assist Standby Assistance Supine to Sit Supine to Sit Standby Assistance,Bedrails Sit to Supine Sit to Supine Minimal Assistance,1 Person Assistance,Bedrails PT-Transfer Assessment Sit to and From Stand Sit to and from Stand Standby Assistance Equipment Transfer Assistive Device Gait Belt,Front Wheeled Walker Orthotic/Prosthetic Devices or Brace: No Comments Mobility Comments Supine to sit SBA with use of bedrail, pt dmeonstrates good carryover of sequencing. She recalled 2/3 spinal precautions sitting EOB(no bending). STS from bed SBA with FWW. She ambulated ~250' SBA with FWW and emerging step thru gait, she denied any lightheadedness. Sit to supine into bed Julia for LE's from spouse. Pt was left in bed, all needs met. Gait Assessment Gait Gait Assistance Required: Standby Assistance Distance (Feet) 250 Able to Maintain Weight Bearing Status Yes During Gait Assistive Devices Assistive Device Gait Belt,Front Wheeled Walker Orthotic/Prosthetic Devices or Brace: No Gait Deviations General Gait Pattern Decreased Stride Length, Decreased Feet Clearance, Narrow Based Gait Factors Limiting Gait Function Factors Limiting Gait Function Decreased Activity Tolerance, Decreased Sensation,Decreased Strength,Difficulty Following Directions,Limited Range of Motion,Pain,Poor Balance,Poor Safety Awareness PT-Balance Assessment Sitting Balance and Reactions Static Sitting Balance Ability Good Dynamic Sitting Balance Ability Good Standing Balance and Reactions Static Standing Balance Ability Fair Dynamic Standing Balance Ability Fair Device Used FWW M5 PT-IP Objective Assessments Start: 10/16/23 11:33 Freq: NEEDED Status: Active Protocol: Document 10/16/23 09:40 AB (Rec: 10/16/23 11:51 AB [id number]) Orientation Orientation/Cognition Level of Alertness Alert Orientation Name,Place,Situation Language Function Ability No Deficits Noted Safety Awareness Understands Safety Issues Memory Description Short Term Impaired Gross Range of Motion Lower Extremity ROM Assessment Within Functional Limits Strength Lower Extremity Strength Assessment Left Impaired Hip 3+/5 Knee 3+/5 Sensation Assessment Sensation Gross Sensation Right LE Impaired,Left LE Impaired Sensation Description Tingling Comments Sensation Comments c/o B LE tingling Muscle Tone Muscle Tone WNL Yes M6 PT-IP Treatment Start: 10/16/23 11:33 Freq: NEEDED Status: Active Protocol: Document 10/16/23 14:31 TS (Rec: 10/16/23 14:48 TS [id number]) Physical Therapy Treatment Education Education Provided Precautions,Weight Bearing Status,Post-Op Packet,Safety M7 PT-IP Assessment and Plan Start: 10/16/23 11:33 Freq: NEEDED Status: Active Protocol: Document 10/16/23 14:31 TS (Rec: 10/16/23 14:48 TS [id number]) PT Summary Assessment and Plan Potential Rehabilitation Potential Fair Summary Impairments Pain,ROM,Strength,Balance, Coordination,Sensation,Tone, Cognition,Bed Mobility, Transfers,Gait,Activity Tolerance Progress Towards Goals Progressing Toward Goals Assessment Summary Sarahi is making good progress with her mobility. She is SBA for supine to sit and dmeonstrates good carryover of sequencing. She progressed her gait to ~250'SBA with emerging step thru gait and use of FWW. She required some cueing for decreased twisting while sitting EOB and recalled 2/3 spinal precautions(no bending). PT is recommending pt return home with assist from spouse. Goals Bed Mobility Goal Independent Transfer Goal Independent,Front Wheeled Walker Gait Goal Independent,Front Wheel Walker Gait Distance 200 Other Goals improve transfers and ambulation using 4WW/LRAD ~ 250 ft mod I up/down 1 step with 1 rail SBA Days to Meet Goals 5 Frequency of Treatment Frequency Of Treatment Twice a Day Treatment Plan Physical Therapy Treatment Plan Bed Mobility Training,Transfer Training,Gait Training, Therapeutic Exercise,Balance Retraining,Post Op Education, Discharge Planning,Hot or Cold Pack,Neuromuscular Re-ed, Coordination Retraining,Manual Therapy Other Recommendations and Next Treatment cargiver training; ambulation Focus using 4WW when appropriate; up /down step stool with 1 rail Precautions Lumbar Precautions Log Roll,No Twisting,Limit Bending,Lifting Restriction of 10 lbs,Gait Belt above Incisional Area Recommendations To Nursing Amount of Assist Needed 1 Person Assist Discharge Recommendations PT Discharge Recommendations Home with Assistance Equipment Needed for Home Before FWW if not safe with 4WW Discharge Transportation Needs at Discharge Private Vehicle
[2023-10-16] MEDS: IBUPROFEN 400 MG TABLET PO ×2 (14:19→22:37)
[2023-10-16 16:19] VITALS: BP 90/47; PULSE 89; RESP 16; TEMP 36.9; O2SAT 94
[2023-10-16] MEDS: SENNOSIDES 8.6 MG TABLET 17.2 MG PO (20:15)
[2023-10-16] MEDS: FLUoxetine 20 MG CAPSULE 40 MG PO (20:15)
[2023-10-16] MEDS: SODIUM CHLORIDE 0.9% FLUSH 10 ML IV (20:15)
[2023-10-16 20:43] VITALS: BP 118/72; PULSE 82; RESP 16; TEMP 36.8; O2SAT 99
[2023-10-16 22:35] VITALS: BP 107/58; PULSE 84
[2023-10-16] MEDS: cloNIDine 0.1 MG TABLET 0.8 MG PO (22:35)
[2023-10-16] MEDS: clonazePAM 0.5 MG TABLET PO (22:36)
--- NOTE | 2023-10-16 22:50 | PC.NURSE ---
Patient is alert and oriented. Breath sounds CTA with RA sat of 99%. HRR. Denied nausea. BT present and is passing flatus. Denies dysuria with urination. Is able to move herself in bed. Up in room with walker and SBA. Dressing to back is intact with small area of shadow drainage. Complaining of 6/10 burning pain in mid/lower torso radiating down to hips/thighs. Pain increases with activity and then also has tingling in anterior thighs. Pain increased to 8/10 and was medicated with oxycodone + Robaxin and ice pack applied which reduced pain to 7/10 so now Tylenol + Ibuprofen given. Had shower and then back to bed and bilateral calf SCD's applied. Takes Clonidine + Clonazepam at bedtime to prevent clenching of teeth; BP prior to medication was soft at 107/58 so instructed to call for staff assist when getting out of bed so as to prevent fall due to possible drop in BP and she verbalized understanding. Fall risk score is moderate but alarm not in use as spouse at bedside and verbally agreed to call for assist out of bed tonight.
[2023-10-17] MEDS: ACETAMINOPHEN 325 MG TABLET 650 MG PO (05:35)
[2023-10-17] MEDS: OXYCODONE IR 10 MG TABLET PO ×2 (05:35→09:13)
[2023-10-17] MEDS: methocarbamoL 500 MG TABLET PO (05:35)
[2023-10-17 05:56] VITALS: BP 106/59; PULSE 76; RESP 16; TEMP 36.3; O2SAT 97
--- NOTE | 2023-10-17 06:45 | P.DS_ITS ---
History of Present Illness History of Present Illness Date Patient Seen: 10/17/23 Time Patient Seen: 06:45 Chief complaint: Lumbar TLIF Narrative: Operative Date/Time/Diagnoses Date of procedure: 10/15/23 Time of procedure: 10:30 Pre-op diagnosis: 1. L4-5 spondylolisthesis 2. L4-5 spinal stenosis with radiculopathy Post-op diagnosis: same Procedure & Clinicians Procedure: 1. L4-5 Postero-lateral and posterior interbody fusion 2. L4-5 interbody cage placement. 3. L4-5 decompressive laminectomy with bilateral facetecomies 4. L4-5 Posterior non-segmental instrumentation 5. [place] of bone marrow from iliac crest 6. Utilization of microsurgical technique and operating microscope Same procedure as scheduled: No Indications: Patient has been having chronic back pain and worsening lumbar radiculopathy. Patient failed multiple conservative management with worsening pain weakness and numbness in her lower extremity. Patient has been having difficulty performing activity of daily living. After discussing risks benefits of treatment options, patient elected proceed with surgery. Surgeon: Nuno Cox Green Building Materials Designer: Humera Lopez Click Yes if Unassisted: No Anesthesia Type: General Operative Notes Closure Type: primary Specimen(s): none sent Prosthetic devices, grafts, tissues, transplants, or devices: Globus revolve screws, Rise cage Estimated Blood Loss (mL): 100 Blood products transfused: none Discharge Providers Provider Date of admission: 24 09:11 Discharge Date: 10/17/23 Primary care physician: Jami Olson DO Consults: 10/15/23 14:49 Consult to Occupational Therapy Evaluate & Treat Comment: Physician Instructions: Evaluate and treat Consult to Physical Therapy Evaluate & Treat Comment: Physician Instructions: Evaluate and Treat Discharge provider: Humera Lopez PA-C Summary Hospital Course Discharge Diagnosis: L4-5 spondylolisthesis, L4-5 spinal stenosis with radiculopathy; s/p lumbar fusion Hospital Course: Ms Alejandro's hospital course was remarkable for poor pain control and slow progress w/ PT. Methocarbamol was added to her pain regimen on POD# 1. On the morning of POD# 2, she continued to c/o burning LBP that radiated up to her thoracic spine and down her legs bilaterally. She was eating and voiding without difficulty. She has a h/o nausea w/ oxycodone and requested a scopolamine patch. Exam Vital Signs (past 8 hours): - 10/17/23 05:56 Temperature 97.4 F L Pulse Rate 76 Respiratory Rate 16 Blood Pressure 106/59 L Pulse Oximetry 97 Oxygen Flow Rate 0 Oxygen Delivery Method Room Air Oxygen Flow Rate 0 Narrative Exam Narrative: 5/5 strength in hip flexors, quadriceps, hamstrings, DF, PF, EHL bilaterally. Sensation to light touch intact in BLE. Calves soft, compressible, nontender. Dressing placed intraoperatively is CDI. [facility] Medical History (Updated 10/08/23 @ 10:20 by Janessa Zapata RN) PTSD (post-traumatic stress disorder) Depression Easy bruisability Neuroforaminal stenosis of lumbar spine Pre-diabetes Edema History of COVID-19 (02/2022) RLS (restless legs syndrome) Sciatica Surgical History (Updated 10/17/23 @ 07:23 by Humera Lopez PA-C) Hx of tonsillectomy History of gynecologic surgery History of Social History household members: spouse and children Smoking Status: Former smoker alcohol intake: never Discharge Assessment & Plan Assessment and Plan Assessment: L4-5 spondylolisthesis, L4-5 spinal stenosis with radiculopathy; s/p lumbar fusion Plan of Treatment: Will start dexamethasone and send pt home w/ Medrol Sarbjit if this is effective for pain reduction. No h/o diabetes. Scopolamine patch for nausea per pt request. Encouraged participation w/ PT. Pt may go home later today if pain well-controlled and she feels confident w/ ambulation and transfers. She has a significant other for help. Otherwise, she can go home tomorrow. Discharge Plan Discharge Plan Patient Disposition: Home Discharge orders & Medications Prescriptions: New oxycodone 5 mg tablet 5 mg PO Q4H PRN (Reason: pain (scale score 4-6)) Qty: 60 0RF docusate sodium 100 mg Capsule 100 mg PO BID PRN (Reason: constipation) Qty: 60 1RF methylprednisolone [Medrol (Sarbjit)] 4 mg tablets,dose pack See Rx Instructions .ROUTE .COMPLEX Qty: 21 0RF Rx Instructions: orally per package directions acetaminophen 325 mg Tablet 650 mg PO Q6H PRN (Reason: Fever/Mild Pain (1-3)) Qty: 240 0RF scopolamine base 1 mg over 3 days patch 3 day 1 patch transdermal Q3D PRN (Reason: nausea and vomiting) Qty: 10 0RF Continued fluoxetine 40 mg Capsule 40 mg PO BEDTIME Rx Instructions: administer in the morning and at noon/midday Excedrin Tension Headache 500-65 mg Tablet 2 tab PO TID clonazepam 0.5 mg Tablet 0.5 mg PO BEDTIME Rx Instructions: administer 30 minutes before bedtime clonidine HCl 0.2 mg Tablet 0.8 mg PO BEDTIME gabapentin 300 mg Capsule 300 mg PO TID-QID PRN (Reason: pain) spironolactone 25 mg tablet 25 mg PO DAILY phentermine 37.5 mg capsule 37.5 mg PO DAILY Discontinued naproxen sodium [Aleve] 220 mg Tablet 440 mg PO TID-QID PRN (Reason: Pain) ibuprofen [Advil] 200 mg Tablet 400 mg PO TID PRN (Reason: Pain) Follow up/Referrals: Jami Olson DO [Primary Care Provider] - Nuno Cox MD [Physician] - 10/30/23 1:20 pm (Follow up w/ Humera Lopez PA-C, at [facility] office in [place].) Diet/Activity/Treatments Diet: Diet as Tolerated Activity: No deep bending or twisting at the waist. No lifting more than 10 pounds. Cold/Heat Therapy: Heating pad to low back as needed for pain. Skin/Wound/Dressing Care Report to your healthcare provider any signs of infection, such as:: chills, fever, night sweats, unusual drainage and unusual redness Dressing: May shower. Keep dressing as dry as possible. If dressing becomes wet or dirty, may remove and replace with clean, dry gauze. No bathing or otherwise soaking incisions. Do not apply any creams, lotions, or ointments to incisions. Visit Report/Discharge Packet Instructions: DI for Prescription Opioid Use, DI for Transforaminal Lumbar Interbody Fusion Stand Alone Forms: Patient Portal/API, Stroke Signs & Symptoms, Surgery Discharge Discharge Data Primary Care Provider: Jami Olson Quality VTE Deep Vein Thrombosis/Pulmonary Embolism Present on Admission: No
[2023-10-17] MEDS: DEXAMETHASONE 4 MG/ML VIAL IV (07:56)
[2023-10-17] MEDS: polyethylene glycoL 3350 17 GM POWD.PACK PO (08:40)
[2023-10-17] MEDS: GABAPENTIN 300 MG CAPSULE PO (08:40)
[2023-10-17] MEDS: DOCUSATE 100 MG CAPSULE PO (08:40)
[2023-10-17] MEDS: SPIRONOLACTONE 25 MG TABLET PO (08:40)
[2023-10-17] MEDS: SODIUM CHLORIDE 0.9% FLUSH 10 ML IV (08:40)
--- NOTE | 2023-10-17 08:47 | PT.IPTN ---
Current Diagnoses Spondylolisthesis, lumbar region (10/15/23) Spinal stenosis, lumbar region without neurogenic claudication (10/15/23) Arthrodesis status (10/15/23) Surgery Performed Operation Date: 10/15/23 10:15 Actual Procedures p L4-5 TLIF - Nuno Cox MD Physical Therapy Treatment Note M2 PT-IP Current Condition Start: 10/16/23 11:33 Freq: NEEDED Status: Active Protocol: Document 10/16/23 09:40 AB (Rec: 10/16/23 11:51 AB [id number]) Physical Therapy Current Condition Current Condition Evaluation Date 10/16/23 Treatment Diagnosis s/p L4-5 TLIF; difficulty in walking Onset Date 10/15/23 M3 PT-IP Subjective Start: 10/16/23 11:33 Freq: NEEDED Status: Active Protocol: Document 10/17/23 10:04 TS (Rec: 10/17/23 10:16 TS [id number]) Subjective Physical Therapy Visit Type Type Treatment Note Visit Start Time 08:47 Visit Stop Time 09:10 Notes Spouse present Number of INSURANCE SALES AGENT Visits 2 Physical Therapy Visit Comments Patient Comments Pt found resting in bed, reports pain is 6/10, pt is agreeable to PT. Therapy Pain Assessment Pain When Pain Assessed At Rest Pain Present Pain Present Pain Reported Location mid/low torso radiating to hips/legs Intensity 6 Scale Used Numeric (0 - 10) Description Burning,Sharp,With Movement Pain Behaviors Facial Grimacing,Guarding, Wincing Pain Management Techniques Distraction,Re-positioning, Timing of Activity with Medications M4 PT-IP Mobility and Gait Start: 10/16/23 11:33 Freq: NEEDED Status: Active Protocol: Document 10/17/23 10:04 TS (Rec: 10/17/23 10:16 TS [id number]) PT-Bed Mobility Assessment Rolling Type of Rolling Log Rolling Level of Assist Standby Assistance Supine to Sit Supine to Sit Standby Assistance,Bedrails Sit to Supine Sit to Supine Minimal Assistance,1 Person Assistance,Bedrails Scooting Scooting to Edge of Bed Standby Assistance PT-Transfer Assessment Sit to and From Stand Sit to and from Stand Standby Assistance Equipment Transfer Assistive Device Gait Belt,Front Wheeled Walker Orthotic/Prosthetic Devices or Brace: No Comments Mobility Comments Logroll to L side SBA, pt demonstrates good awareness of spinal precautions. Supine to sit SBA, pt demonstrates good carryover sequencing. STS with FWW SBA, pt has good standing balance. She ambulated ~250'SBA with FWW, has good standing balance with step thru gait. She performed steps x3 with B handrails SBA . She amublated back to room. Sit to supine into bed Julia for LE's. pt was left in bed, all needs met. Gait Assessment Gait Gait Assistance Required: Standby Assistance Distance (Feet) 250 Able to Maintain Weight Bearing Status Yes During Gait Assistive Devices Assistive Device Gait Belt,Front Wheeled Walker Orthotic/Prosthetic Devices or Brace: No Gait Deviations General Gait Pattern Decreased Stride Length, Decreased Feet Clearance, Narrow Based Gait Factors Limiting Gait Function Factors Limiting Gait Function Decreased Activity Tolerance, Decreased Sensation,Decreased Strength,Difficulty Following Directions,Limited Range of Motion,Pain,Poor Balance,Poor Safety Awareness Comments Gait Comments See mobility comments Stair Climbing Assessment Evaluation Level of Assist On Stairs Standby Assistance Devices Stair Climbing Assistive Devices Left Railing,Right Railing Technique/Endurance Stair Climbing Direction Ascend and Descend Stair Climbing Technique Step to Step Number of Steps Climbed 3 PT-Balance Assessment Sitting Balance and Reactions Static Sitting Balance Ability Good Dynamic Sitting Balance Ability Good Standing Balance and Reactions Static Standing Balance Ability Good Dynamic Standing Balance Ability Good Device Used FWW M5 PT-IP Objective Assessments Start: 10/16/23 11:33 Freq: NEEDED Status: Active Protocol: Document 10/16/23 09:40 AB (Rec: 10/16/23 11:51 AB [id number]) Orientation Orientation/Cognition Level of Alertness Alert Orientation Name,Place,Situation Language Function Ability No Deficits Noted Safety Awareness Understands Safety Issues Memory Description Short Term Impaired Gross Range of Motion Lower Extremity ROM Assessment Within Functional Limits Strength Lower Extremity Strength Assessment Left Impaired Hip 3+/5 Knee 3+/5 Sensation Assessment Sensation Gross Sensation Right LE Impaired,Left LE Impaired Sensation Description Tingling Comments Sensation Comments c/o B LE tingling Muscle Tone Muscle Tone WNL Yes M6 PT-IP Treatment Start: 10/16/23 11:33 Freq: NEEDED Status: Active Protocol: Document 10/17/23 10:04 TS (Rec: 10/17/23 10:16 TS [id number]) Physical Therapy Treatment Education Education Provided Precautions,Weight Bearing Status,Post-Op Packet,Safety M7 PT-IP Assessment and Plan Start: 10/16/23 11:33 Freq: NEEDED Status: Active Protocol: Document 10/17/23 10:04 TS (Rec: 10/17/23 10:16 TS [id number]) PT Summary Assessment and Plan Potential Rehabilitation Potential Good Summary Impairments Pain,ROM,Strength,Balance, Coordination,Sensation,Tone, Cognition,Bed Mobility, Transfers,Gait,Activity Tolerance Progress Towards Goals Progressing Toward Goals Assessment Summary Sarahi continues to make good progress with her mobility. She is SBA for most bed mobility but requires Julia for LE's into bed. She continues to ambulate ~250'SBA with FWW and good standing balance. She performed steps SBA with B handrails, had no buckling or LOB. PT is recommending home with assist. Goals Bed Mobility Goal Independent Transfer Goal Independent,Front Wheeled Walker Gait Goal Independent,Front Wheel Walker Gait Distance 200 Other Goals improve transfers and ambulation using 4WW/LRAD ~ 250 ft mod I up/down 1 step with 1 rail SBA Days to Meet Goals 5 Frequency of Treatment Frequency Of Treatment Twice a Day Treatment Plan Physical Therapy Treatment Plan Bed Mobility Training,Transfer Training,Gait Training, Therapeutic Exercise,Balance Retraining,Post Op Education, Discharge Planning,Hot or Cold Pack,Neuromuscular Re-ed, Coordination Retraining,Manual Therapy Other Recommendations and Next Treatment cargiver training; ambulation Focus using 4WW when appropriate; up /down step stool with 1 rail Precautions Lumbar Precautions Log Roll,No Twisting,Limit Bending,Lifting Restriction of 10 lbs,Gait Belt above Incisional Area Recommendations To Nursing Amount of Assist Needed 1 Person Assist Discharge Recommendations PT Discharge Recommendations Home with Assistance Equipment Needed for Home Before FWW if not safe with 4WW Discharge Transportation Needs at Discharge Private Vehicle
[2023-10-17] MEDS: IBUPROFEN 400 MG TABLET PO (09:12)
--- NOTE | 2023-10-17 09:23 | CM.DPNOTE ---
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 Per chart review, pt cleared to dc home with family today. Per RN, pt has concerns/fears about pain management at home. Per RN, pt is indep in the room. Plan: home with spouse and son support today. anticipate no CM needs. CM team will follow as needed. CHLOE Renae
--- NOTE | 2023-10-17 10:00 | OT.IP.TRT ---
Current Diagnoses Spondylolisthesis, lumbar region (10/15/23) Spinal stenosis, lumbar region without neurogenic claudication (10/15/23) Arthrodesis status (10/15/23) Surgery Performed Operation Date: 10/15/23 10:15 Actual Procedures p L4-5 TLIF - Nuno Cox MD Occupational Therapy Treatment Note M2 OT-IP Current Condition Start: 10/16/23 10:37 Freq: Status: Active Protocol: Document 10/16/23 10:37 [facility] (Rec: 10/16/23 10:49 [facility] [id number]) Occupational Therapy Current Condition Current Condition Evaluation Date 10/16/23 Treatment Diagnosis S/P L4-5 TLIF Diagnosis Onset Date 10/15/23 Post Operative Precautions Lumbar Precautions Log Roll,No Twisting,Limit Bending,Lifting Restriction of 10 lbs,Gait Belt above Incisional Area M3 OT- IP Subjective and Pain Start: 10/16/23 10:37 Freq: Status: Active Protocol: Document 10/17/23 10:02 [facility] (Rec: 10/17/23 10:16 [facility] [id number]) OT- Subjective Occupational Therapy Visit Type Type Treatment Note Visit Start Time 09:28 Visit Stop Time 10:00 Occupational Therapy Visit Comments Patient Comments Pt agreed to get dressed and use the bathroom. Patient/Caregiver Goals TO go home. OT Pain Assessment Pain When Pain Assessed During Mobility Pain Present Pain Present Pain Reported M4 OT- IP ADL's Start: 10/16/23 10:37 Freq: Status: Active Protocol: Document 10/17/23 10:02 [facility] (Rec: 10/17/23 10:16 [facility] [id number]) OT [id number] General Evaluation Self-Feeding Ability Independent OT ADL-Grooming Comments OT Grooming Comments Not performed. OT ADL-Oral Care Comments Oral Care Comments Not performed. OT ADL-Dressing General Eval Lower Body Dressing Ability Contact Guard Assistance Comments OT Dressing Comments SBA and able to use the kit planner to assist with LB dressing needs. Assist to untwist her pant leg, educated best to wear shorter pants and be sure to pull up the pant leg up before coming to stand. OT ADL-Toileting General Evaluation Toileting Ability Standby Assistance Comments OT Toileting Comments SBA OT ADL-Bathing Comments OT Bathing Comments Pt was able to shower yesterday, encouraged pt to get a shower chair as sitting on the edge of the claw foot tub with be unsafe. M5 OT- IP IADL's Start: 10/16/23 10:37 Freq: Status: Active Protocol: Document 10/16/23 10:37 [facility] (Rec: 10/16/23 10:49 [facility] [id number]) OT-Instrumental Activities of Daily Living Deficits IADL Deficits Identified Deficits Home Safety Awareness Awareness of Need for Assistance at Home Good Awareness Ability to Problem Solve Emergency Able to Problem Solve Situations Meal Preparation Meal Preparation Caregiver Provides Assist Chief Unit Forester Chief Unit Forester Caregiver Provides Assist M6 OT- IP Functional Cognition Start: 10/16/23 10:37 Freq: Status: Active Protocol: Document 10/17/23 10:02 [facility] (Rec: 10/17/23 10:16 [facility] [id number]) Cognitive Factors Limiting Selfcare Function Cognitive Comments Cognitive Assessment Comments VC to slow down and thinks things through for her precautions. Pt trying to hold clothing while trying to walk with the FWW. Suggested to use a bag on the FWW or have her bring her clothing items. M7 OT- IP Mobility and Balance Start: 10/16/23 10:37 Freq: Status: Active Protocol: Document 10/17/23 10:02 [facility] (Rec: 10/17/23 10:16 [facility] [id number]) OT-Transfer Assessment Sit to and From Stand Sit to and from Stand Standby Assistance Transfers Transfer Ability Standby Assistance,Contact Guard Assistance Technique Transfer Destination Bed,Chair,Toilet Transfer Technique Stand Step Pivot Devices Transfer Assistive Devices Gait Belt,Front Wheeled Walker Comments Mobility Comments Able to practice stepping up on a step to get into the bed as her bed is high at home. OT- Balance Assessment Sitting Balance and Reactions Static Sitting Balance Ability Normal Dynamic Sitting Balance Ability Good Standing Balance and Reactions Static Standing Balance Ability Good Dynamic Standing Balance Ability Good M8 OT- IP Objective Assessments Start: 10/16/23 10:37 Freq: Status: Active Protocol: Document 10/16/23 10:37 [facility] (Rec: 10/16/23 10:49 [facility] [id number]) OT Gross Range of Motion Upper Extremity Range of Motion Assessment Within Functional Limits OT Strength Upper Extremity Strength Assessment Within Functional Limits M9 OT- IP Assessment and Plan Start: 10/16/23 10:37 Freq: Status: Active Protocol: Document 10/17/23 10:02 [facility] (Rec: 10/17/23 10:16 [facility] [id number]) OT Summary Assessment and Plan Potential Rehabilitation Potential Good Analytic Complexity at Evaluation Low Summary OT Impairments Pain,Strength,Balance, Functional Mobility,Dressing, Toileting,Bathing,Toilet Transfers,Shower Transfers, Activity Tolerance Progress Towards Goals Progressing Toward Goals Assessment Summary Able to finalize OT needs with pt and her . Pt continues to need cues for safety to incorporate her back precautions during ADL and mobility needs. Pt to go home with her to assist. Suggested nursing aid bring fww out to assist to get into the car or/and have her park by the curb as pt has a step to get into the car. Goals Bathing Goal Standby Assistance Shower Transfer Goal Standby Assistance Days to Meet Goals 3 Frequency of Treatment Frequency Of Treatment Once a Day Treatment Plan OT Treatment Plan ADL Training,Functional Mobility,Patient/Family Education,Discharge Planning Discharge Recommendations OT Discharge Recommendations Home with 05/02 Assist Available Home Equipment Needs shower chair, FWW, LB dressing equipment, long handled brush Transportation Needs at Discharge Private Vehicle
== END 2023-10-17 10:20 | disposition home or self-care (01) | DRG 455 ==
PROVIDERS: Admitting Provider Orthopaedic Surgery Orthopaedic Surgery of the Spine; PCP Obstetrics & Gynecology; Referring Provider Orthopaedic Surgery Orthopaedic Surgery of the Spine; Visit Provider Orthopaedic Surgery Orthopaedic Surgery of the Spine
PROC: 0SG00AJ Fusion of Lumbar Vertebral Joint with Interbody Fusion Device, Posterior Approach, Anterior Column, Open Approach (ICD-10-PCS; principal; 2023-10-15 10:15)
DX: M43.16 Spondylolisthesis, lumbar region (principal); M54.16 Radiculopathy, lumbar region; M48.061 Spinal stenosis, lumbar region without neurogenic claudication; G89.18 Other acute postprocedural pain; F32.A Depression, unspecified; G43.909 Migraine, unspecified, not intractable, without status migrainosus
CPT/HCPCS: 72100; 76000; 97116; 97162; 97165; 97530; 97535; C1713; C1831; C9290; J0171; J0690; J1100; J1170; J1885; J2250; J2405; J2704; J3010; J3410